=== PATIENT | male | born 1985 | race Caucasian/White ===

== ENCOUNTER 2021-10-17 16:26 | Emergency (ER) | payer MEDICARE, MEDICAID ==
[~2021-10-17] VITALS: Ht 177.8 cm; Wt 79.5 kg
[2021-10-17 16:30] VITALS: BP 134/78
[2021-10-17] MEDS ORDERED: OLAN2.5T29 PO (16:37)
[2021-10-17] MEDS ORDERED: LORA-999 PO (16:37)
[2021-10-17] MEDS ORDERED: OLANZapine 5 MG TABLET PO ONE (17:30)
[2021-10-17] MEDS ORDERED: LORazepam 1 MG TABLET PO ONE (17:30)
[2021-10-17] MEDS ORDERED: BENZTROPINE MESYLATE 2 MG TABLET PO ONE (17:30)
== END 2021-10-17 17:47 | disposition home or self-care (01) ==
LOC: EMS 16:29
DX: F25.9 Schizoaffective disorder, unspecified (principal); F41.9 Anxiety disorder, unspecified; Z76.0 Encounter for issue of repeat prescription
CPT/HCPCS: 99284; Z7502; Z7610

== ENCOUNTER 2021-11-16 11:44 | Inpatient (IN) | payer MEDICARE, MEDICAID ==
[~2021-11-16] VITALS: Ht 185.4 cm; Wt 74.0 kg
[~2021-11-16 11:44] MED LIST: LORA-999 PO; OLAN2.5T29 PO
[2021-11-16 14:11] LABS: BASOPHILS % (AUTO) 0.6 % (0.0-2.0); EOSINOPHILS % (AUTO) 1.2 % (1.0-6.0); HEMATOCRIT 33.2 % (41-53); HEMOGLOBIN 11.3 g/dL (13.5-17.5); LYMPHOCYTES # (AUTO) 1.3 K/uL (1.0-4.8); LYMPHOCYTES % (AUTO) 42.5 % (22.0-44.0); MEAN CORPUSCULAR HEMOGLOBIN 28.4 pg (26.0-34.0); MEAN CORPUSCULAR HGB CONC 34.1 G/dL (31.0-37.0); MEAN CORPUSCULAR VOLUME 83 fL (80-100); MONOCYTES # (AUTO) 0.3 K/uL (0.1-1.0); MONOCYTES % (AUTO) 10.1 % (2.0-9.0); NEUTROPHILS # (AUTO) 1.4 K/uL (1.8-7.7); NEUTROPHILS % (AUTO) 45.6 % (40.0-70.0); PLATELET COUNT (AUTO) 257 K/uL (150-450); RED BLOOD CELL COUNT(AUTO) 3.99 MIL/uL (4.50-5.90); RED CELL DISTRIBUTION WIDTH 14.6 % (11.5-14.5)
[2021-11-16 14:16] LABS: ANION GAP 9 mmol/L (8-16); CALCIUM, TOTAL 8.5 mg/dL (8.8-10.5); CARBON DIOXIDE 29 mmol/L (22-29); CHLORIDE 105 mmol/L (98-107); CREATININE 0.71 mg/dL (0.60-1.30); GLOMERULAR FILTR. RATE CALC > 60 mL/min (>60); GLUCOSE,RANDOM 91 mg/dL (70-110); SODIUM SERUM 143 mmol/L (136-145); UREA NITROGEN, BLOOD 14 mg/dL (7-18)
[2021-11-16 14:21] LABS: ALANINE AMINOTRANSFERASE 36 U/L (12-78); ALBUMIN 3.4 g/dL (3.4-5.0); ALKALINE PHOSPHATASE 99 U/L (46-116); ASPARTATE AMINOTRANSFERASE 26 U/L (15-37); BILIRUBIN,TOTAL 0.2 mg/dL (0.1-1.0); TOTAL PROTEIN, SERUM 6.8 g/dL (6.4-8.2)
[2021-11-16] MEDS ORDERED: LORazepam 1 MG TABLET PO ONE (15:30)
[2021-11-16] MEDS ORDERED: HALOPERIDOL 5 MG TABLET PO ONE (15:30)
[2021-11-16] MEDS ORDERED: ZOLPIDEM TARTRATE 10 MG TABLET PO PRN (16:00)
[2021-11-16] MEDS: LORazepam 2 MG TABLET PO PRN ×2 (16:27→16:36)
[2021-11-16 16:32] LABS: COVID AG,FIA SOURCE NASAL SWAB
[2021-11-16 17:46] LABS: APPEARANCE,URINE CLEAR (CLEAR); BILIRUBIN,URINE NEGATIVE (NEGATIVE); GLUCOSE, URINE (UA) NEGATIVE (NEGATIVE); KETONES,URINE NEGATIVE (NEGATIVE); LEUKOCYTE ESTERASE ,URINE NEGATIVE (NEGATIVE); NITRATE,URINE NEGATIVE (NEGATIVE); OCCULT BLOOD,URINE NEGATIVE (NEGATIVE); PROTEIN,URINE NEGATIVE (NEGATIVE); UROBILINOGEN,URINE 0.2 mg/dL (<=1.0)
[2021-11-16 17:52] LABS: AMPHET/METH SCREEN,URINE POSITIVE (NEGATIVE); BARBITURATE SCREEN, URINE NEGATIVE (NEGATIVE); BENZODIAZEPINES SCREEN,URINE NEGATIVE (NEGATIVE); CANNABINOID SCREEN,URINE NEGATIVE (NEGATIVE); COCAINE SCREEN,URINE NEGATIVE (NEGATIVE); METHADONE SCREEN, URINE NEGATIVE (NEGATIVE); OPIATE SCREEN,URINE NEGATIVE (NEGATIVE)
[2021-11-16 18:04] LABS: PHENCYCLIDINE SCREEN,URINE NEGATIVE (NEGATIVE)
[2021-11-16 19:08] VITALS: BP 108/62
[2021-11-16] MEDS ORDERED: PERMETHRIN 5% 60 GM CREAM TP ONE (19:45)
[2021-11-16] MEDS ORDERED: INFLUENZA VIRUS VACCINE QVS 2021-22 (6MO+)/PF 60 MCG/0.5 ML SYRINGE IM. ONE (20:00)
[2021-11-16] MEDS ORDERED: MAG HYDROX/AL HYDROX/SIMETH ES 30 ML SUSPENSION UDCUP PO PRN (21:30)
[2021-11-16] MEDS ORDERED: ACETAMINOPHEN 325 MG TABLET PO PRN (21:30)
[2021-11-16] MEDS ORDERED: PROMETHAZINE HCL 25 MG TABLET PO PRN (21:30)
[2021-11-16] MEDS ORDERED: GuaiFENesin/D-METHORPHAN [SUGAR-FREE] 200-20MG/10 ML SYRUP UDCUP PO PRN (21:30)
[2021-11-16] MEDS ORDERED: TUBERCULIN, PURIFIED PROTEIN DERIVATIVE 5 TU/0.1 ML SYRINGE ID ONE (21:30)
[2021-11-16] MEDS ORDERED: LOPERAMIDE HCL 2 MG CAPSULE PO PRN (21:30)
[2021-11-16] MEDS ORDERED: MAGNESIUM HYDROXIDE SUSPENSION 30 ML UDCUP PO PRN (21:30)
[2021-11-17 07:04] VITALS: BP 110/65
[2021-11-17 08:33] VITALS: BP 123/79
[2021-11-17] MEDS: MULTIVITAMINS WITH MINERALS, THERAPEUTIC TABLET PO SCH (08:56)
[2021-11-17] MEDS: FOLIC ACID 1 MG TABLET PO SCH (08:56)
[2021-11-17] MEDS: THIAMINE 100 MG TABLET PO SCH ×2 (08:56→22:41)
[2021-11-17] MEDS: OMEGA-3/DHA/EPA/FISH OIL 1,000 MG CAPSULE PO SCH (08:56)
[2021-11-17] MEDS: NALTREXONE HCL 50 MG TABLET PO SCH (08:56)
[2021-11-17] MEDS: FLUoxetine HCL 20 MG CAPSULE PO SCH (08:56)
[2021-11-17] MEDS: LORazepam 2 MG TABLET PO PRN ×2 (12:43→22:45)
[2021-11-17 15:25] LABS: GLUCOMETER DEV NAME(LOC) BV2X.2; GLUCOSE,POINT OF CARE 113 MG/DL (70-110)
[2021-11-17 16:27] VITALS: BP 135/83
[2021-11-17] MEDS ORDERED: OLANZapine 5 MG RAPDIS TABLET PO SCH (21:00)
[2021-11-17] MEDS: MELATONIN 5 MG TABLET PO SCH (22:41)
[2021-11-18 08:26] VITALS: BP 125/83
[2021-11-18] MEDS: FOLIC ACID 1 MG TABLET PO SCH (09:31)
[2021-11-18] MEDS: THIAMINE 100 MG TABLET PO SCH ×2 (09:31→17:00)
[2021-11-18] MEDS: NALTREXONE HCL 50 MG TABLET PO SCH (09:31)
[2021-11-18] MEDS: FLUoxetine HCL 20 MG CAPSULE PO SCH (09:31)
[2021-11-18] MEDS: OMEGA-3/DHA/EPA/FISH OIL 1,000 MG CAPSULE PO SCH (09:31)
[2021-11-18] MEDS: LORazepam 2 MG TABLET PO PRN ×2 (09:31→19:15)
[2021-11-18] MEDS: MULTIVITAMINS WITH MINERALS, THERAPEUTIC TABLET PO SCH (09:31)
[2021-11-18] MEDS ORDERED: PERMETHRIN 5% 60 GM CREAM TP ONE (12:42)
[2021-11-18 16:18] VITALS: BP 110/68
[2021-11-18] MEDS: ACAMPROSATE CALCIUM 333 MG DR TABLET PO SCH (17:13)
[2021-11-18] MEDS: BUPRENORPHINE HCL/NALOXONE HCL 8-2 MG SUBLINGUAL TABLET SL SCH (17:19)
[2021-11-18] MEDS: MELATONIN 5 MG TABLET PO SCH (20:10)
[2021-11-18] MEDS: OLANZapine 10 MG RAPDIS TABLET PO SCH (20:11)
[2021-11-19 00:46] VITALS: BP 134/91
[2021-11-19] MEDS: LORazepam 2 MG TABLET PO PRN ×4 (00:48→19:50)
[2021-11-19] MEDS: OLANZapine 5 MG RAPDIS TABLET PO PRN ×2 (00:48→19:50)
[2021-11-19 08:36] LABS: HEMOGLOBIN A1C 5.4 % (3.8-5.6)
[2021-11-19 09:01] LABS: CHOL/HDL RATIO 3.5 (4.2-7.3); FREE T4 (FREE THYROXINE) 1.04 ng/dL (0.76-1.46); THYROID STIMULATING HORMONE 1.25 uIU/mL (0.36-3.74)
[2021-11-19] MEDS: ACAMPROSATE CALCIUM 333 MG DR TABLET PO SCH ×3 (09:22→18:20)
[2021-11-19] MEDS: FOLIC ACID 1 MG TABLET PO SCH (09:22)
[2021-11-19] MEDS: FLUoxetine HCL 20 MG CAPSULE PO SCH (09:23)
[2021-11-19] MEDS: OMEGA-3/DHA/EPA/FISH OIL 1,000 MG CAPSULE PO SCH (09:23)
[2021-11-19] MEDS: THIAMINE 100 MG TABLET PO SCH ×2 (09:23→18:21)
[2021-11-19] MEDS: BUPRENORPHINE HCL/NALOXONE HCL 8-2 MG SUBLINGUAL TABLET SL SCH ×2 (09:23→18:21)
[2021-11-19] MEDS: MULTIVITAMINS WITH MINERALS, THERAPEUTIC TABLET PO SCH (09:23)
[2021-11-19 12:32] LABS: GLUCOMETER DEV NAME(LOC) POC.BV
[2021-11-19 14:02] VITALS: BP 110/80
[2021-11-19 16:14] VITALS: BP 129/90
[2021-11-19] MEDS ORDERED: PETROLATUM,WHITE 28 GM JELLY TP PRN (19:30)
[2021-11-19] MEDS: OLANZapine 10 MG RAPDIS TABLET PO SCH (21:05)
[2021-11-19] MEDS: MELATONIN 5 MG TABLET PO SCH (21:06)
[2021-11-19] MEDS: HydrOXYzine PAMOATE 50 MG CAPSULE PO PRN (21:58)
[2021-11-20 00:32] VITALS: BP 128/79
[2021-11-20] MEDS: LORazepam 2 MG TABLET PO PRN ×3 (01:24→12:29)
[2021-11-20] MEDS: HydrOXYzine PAMOATE 50 MG CAPSULE PO PRN ×2 (02:05→09:14)
[2021-11-20 06:00] VITALS: BP 131/77
[2021-11-20] MEDS: OLANZapine 5 MG RAPDIS TABLET PO PRN ×2 (08:00→12:29)
[2021-11-20 08:23] VITALS: BP 101/61
[2021-11-20] MEDS ORDERED: FLUoxetine HCL 20 MG CAPSULE PO SCH (09:00)
[2021-11-20] MEDS: MULTIVITAMINS WITH MINERALS, THERAPEUTIC TABLET PO SCH (09:13)
[2021-11-20] MEDS: FOLIC ACID 1 MG TABLET PO SCH (09:13)
[2021-11-20] MEDS: THIAMINE 100 MG TABLET PO SCH (09:13)
[2021-11-20] MEDS: OMEGA-3/DHA/EPA/FISH OIL 1,000 MG CAPSULE PO SCH (09:13)
[2021-11-20] MEDS: ACAMPROSATE CALCIUM 333 MG DR TABLET PO SCH ×2 (09:13→12:29)
[2021-11-20] MEDS: BUPRENORPHINE HCL/NALOXONE HCL 8-2 MG SUBLINGUAL TABLET SL SCH (09:14)
[2021-11-20] MEDS ORDERED: OMEG-135 PO ×2 (09:35→10:08)
[2021-11-20] MEDS ORDERED: BUPR1TAB32 SL ×2 (09:35→10:06)
[2021-11-20] MEDS ORDERED: MELA5TAB40 PO ×2 (09:35→10:07)
[2021-11-20] MEDS ORDERED: OLAN10TA26 PO ×2 (09:35→10:07)
[2021-11-20] MEDS ORDERED: ACAM333T7 PO ×2 (09:35→10:01)
[2021-11-20 10:14] VITALS: BP 108/69
[2021-11-20 12:50] VITALS: BP 121/70
[2021-11-20] MEDS ORDERED: FLUO20CA36 PO (15:53)
== END 2021-11-20 13:10 | disposition home or self-care (01) | DRG 885 ==
LOC: EMS 11:58 → B2X 16:52
PROVIDERS: ADMIT Psychiatry & Neurology Psychiatry; ATTEND Psychiatry & Neurology Psychiatry
DX: F25.9 Schizoaffective disorder, unspecified (principal); R45.851 Suicidal ideations; K50.90 Crohn's disease, unspecified, without complications; F17.210 Nicotine dependence, cigarettes, uncomplicated; D64.9 Anemia, unspecified; F15.90 Other stimulant use, unspecified, uncomplicated; D72.819 Decreased white blood cell count, unspecified; J44.9 Chronic obstructive pulmonary disease, unspecified; F31.9 Bipolar disorder, unspecified; Z20.822 Contact with and (suspected) exposure to COVID-19; Z59.00 Homelessness unspecified
CPT/HCPCS: 80053; 80061; 81003; 82962; 83036; 84439; 84443; 85025; 86592; 99285; G0480; Q9967

== ENCOUNTER 2021-11-17 16:05 | Emergency (ER) | payer MEDICARE, MEDICAID ==
[~2021-11-17] VITALS: Ht 185.4 cm; Wt 75.0 kg
[2021-11-17] MEDS ORDERED: DICYCLOMINE HCL 20 MG TABLET PO ONE (16:45)
[2021-11-17 17:02] LABS: BASOPHILS % (AUTO) 0.1 % (0.0-2.0); EOSINOPHILS % (AUTO) 0 % (1.0-6.0); HEMATOCRIT 37.7 % (41-53); HEMOGLOBIN 12.8 g/dL (13.5-17.5); LYMPHOCYTES # (AUTO) 0.5 K/uL (1.0-4.8); LYMPHOCYTES % (AUTO) 9.6 % (22.0-44.0); MEAN CORPUSCULAR HGB CONC 33.9 G/dL (31.0-37.0); MEAN CORPUSCULAR VOLUME 83 fL (80-100); MONOCYTES # (AUTO) 0.2 K/uL (0.1-1.0); NEUTROPHILS # (AUTO) 4.9 K/uL (1.8-7.7); PLATELET COUNT (AUTO) 274 K/uL (150-450); RED BLOOD CELL COUNT(AUTO) 4.56 MIL/uL (4.50-5.90); RED CELL DISTRIBUTION WIDTH 14.3 % (11.5-14.5)
[2021-11-17 17:03] LABS: NEUTROPHILS % (AUTO) 87.3 % (40.0-70.0)
[2021-11-17 17:10] LABS: ANION GAP 11 mmol/L (8-16); CALCIUM, TOTAL 9.4 mg/dL (8.8-10.5); CARBON DIOXIDE 26 mmol/L (22-29); CHLORIDE 104 mmol/L (98-107); CREATININE 0.63 mg/dL (0.60-1.30); GLOMERULAR FILTR. RATE CALC > 60 mL/min (>60); GLUCOSE,RANDOM 120 mg/dL (70-110); POTASSIUM 3.6 mmol/L (3.5-5.1); SODIUM SERUM 141 mmol/L (136-145); UREA NITROGEN, BLOOD 11 mg/dL (7-18)
[2021-11-17 17:15] LABS: ALANINE AMINOTRANSFERASE 44 U/L (12-78); ALBUMIN 3.8 g/dL (3.4-5.0); ALKALINE PHOSPHATASE 112 U/L (46-116); ASPARTATE AMINOTRANSFERASE 26 U/L (15-37); BILIRUBIN,TOTAL 0.2 mg/dL (0.1-1.0); LIPASE 92 U/L (73-393); TOTAL PROTEIN, SERUM 7.7 g/dL (6.4-8.2)
[2021-11-17 20:09] VITALS: BP 128/92
[2021-11-17] MEDS ORDERED: PB/HYOSCY/ATR/SCOP/LIDO/MAALOX 55 ML BOTTLE PO ONE (21:30)
[2021-11-17 21:59] LABS: COVID AG,FIA SOURCE NASAL SWAB
== END 2021-11-17 22:24 | disposition home or self-care (01) ==
LOC: EMS 16:11
DX: R10.9 Unspecified abdominal pain (principal); R06.00 Dyspnea, unspecified; F20.9 Schizophrenia, unspecified; F15.90 Other stimulant use, unspecified, uncomplicated; Z20.822 Contact with and (suspected) exposure to COVID-19
CPT/HCPCS: 71045; 80053; 83690; 85025; 99284; 36415-L1; 36415-TC

== ENCOUNTER 2021-11-21 22:33 | Emergency (ER) | payer MEDICARE, MEDICAID ==
[~2021-11-21] VITALS: Ht 185.4 cm; Wt 75.0 kg
[~2021-11-21 22:33] MED LIST changes: +ACAM333T7 PO; +BUPR1TAB32 SL; +FLUO20CA36 PO; -LORA-999 PO; +MELA5TAB40 PO; +OLAN10TA26 PO; -OLAN2.5T29 PO; +OMEG-135 PO
[2021-11-21 23:19] VITALS: BP 121/80
[2021-11-22] MEDS ORDERED: LORazepam 1 MG TABLET PO ONE (01:45)
[2021-11-22] MEDS ORDERED: HALOPERIDOL 5 MG TABLET PO ONE (01:45)
== END 2021-11-22 02:36 | disposition home or self-care (01) ==
LOC: EMS 22:35
DX: F41.9 Anxiety disorder, unspecified (principal); F15.90 Other stimulant use, unspecified, uncomplicated; F20.9 Schizophrenia, unspecified; F11.90 Opioid use, unspecified, uncomplicated; Z79.899 Other long term (current) drug therapy
CPT/HCPCS: 93005; 99283

== ENCOUNTER 2022-02-04 18:35 | Emergency (ER) | payer MEDICARE, MEDICAID ==
[~2022-02-04] VITALS: Ht 185.4 cm; Wt 75.0 kg
[~2022-02-04 18:35] MED LIST changes: +OMEG-108 PO; -OMEG-135 PO
[2022-02-04] MEDS ORDERED: HALOPERIDOL 5 MG TABLET PO ONE (20:30)
[2022-02-04] MEDS ORDERED: LORazepam 1 MG TABLET PO ONE (20:45)
[2022-02-04 21:02] LABS: ANION GAP 4 mmol/L (8-16); CALCIUM, TOTAL 8.9 mg/dL (8.8-10.5); CARBON DIOXIDE 30 mmol/L (22-29); CHLORIDE 104 mmol/L (98-107); CREATININE 0.66 mg/dL (0.60-1.30); GLOMERULAR FILTR. RATE CALC > 60 mL/min (>60); GLUCOSE,RANDOM 82 mg/dL (70-110); POTASSIUM 4.2 mmol/L (3.5-5.1); SODIUM SERUM 138 mmol/L (136-145); UREA NITROGEN, BLOOD 8 mg/dL (7-18)
[2022-02-04 21:08] LABS: ALANINE AMINOTRANSFERASE 168 U/L (12-78); ALBUMIN 3.4 g/dL (3.4-5.0); ALKALINE PHOSPHATASE 91 U/L (46-116); ASPARTATE AMINOTRANSFERASE 48 U/L (15-37); BILIRUBIN,TOTAL 0.3 mg/dL (0.1-1.0); TOTAL PROTEIN, SERUM 7.3 g/dL (6.4-8.2)
[2022-02-04 21:34] VITALS: BP 115/76
== END 2022-02-04 22:24 | disposition home or self-care (01) ==
LOC: EMS 18:40
DX: F20.9 Schizophrenia, unspecified (principal); F11.90 Opioid use, unspecified, uncomplicated; F15.90 Other stimulant use, unspecified, uncomplicated; F17.210 Nicotine dependence, cigarettes, uncomplicated; Z79.899 Other long term (current) drug therapy
CPT/HCPCS: 36415; 80053; 99284; G0480

== ENCOUNTER 2022-07-16 16:04 | Inpatient (IN) | payer MEDICARE, MEDICAID ==
[~2022-07-16] VITALS: Ht 185.4 cm; Wt 79.8 kg
[~2022-07-16 16:04] MED LIST changes: -OMEG-108 PO; +OMEG-135 PO
[2022-07-16 17:04] LABS: BASOPHILS % (AUTO) 0.3 % (0.0-2.0); EOSINOPHILS % (AUTO) 0.2 % (1.0-6.0); HEMATOCRIT 37.1 % (41-53); HEMOGLOBIN 12.5 g/dL (13.5-17.5); LYMPHOCYTES # (AUTO) 1.3 K/uL (1.0-4.8); LYMPHOCYTES % (AUTO) 21.8 % (22.0-44.0); MEAN CORPUSCULAR HEMOGLOBIN 29.8 pg (26.0-34.0); MEAN CORPUSCULAR HGB CONC 33.6 G/dL (31.0-37.0); MEAN CORPUSCULAR VOLUME 89 fL (80-100); MONOCYTES # (AUTO) 0.4 K/uL (0.1-1.0); MONOCYTES % (AUTO) 6.9 % (2.0-9.0); NEUTROPHILS # (AUTO) 4.1 K/uL (1.8-7.7); NEUTROPHILS % (AUTO) 70.8 % (40.0-70.0); PLATELET COUNT (AUTO) 189 K/uL (150-450); RED BLOOD CELL COUNT(AUTO) 4.19 MIL/uL (4.50-5.90); RED CELL DISTRIBUTION WIDTH 15.2 % (11.5-14.5)
[2022-07-16 17:07] LABS: COVID AG,FIA SOURCE NASAL SWAB
[2022-07-16 17:16] LABS: ANION GAP 8 mmol/L (8-16); CARBON DIOXIDE 29 mmol/L (22-29); CHLORIDE 103 mmol/L (98-107); CREATININE 0.72 mg/dL (0.60-1.30); GLUCOSE,RANDOM 93 mg/dL (70-110); POTASSIUM 4.2 mmol/L (3.5-5.1); SODIUM SERUM 140 mmol/L (136-145); UREA NITROGEN, BLOOD 10 mg/dL (7-18)
[2022-07-16 17:17] LABS: GLOMERULAR FILTR. RATE CALC > 60 mL/min (>60)
[2022-07-16 17:20] LABS: ALANINE AMINOTRANSFERASE 21 U/L (12-78); ALBUMIN 3.7 g/dL (3.4-5.0); ALKALINE PHOSPHATASE 66 U/L (46-116); ASPARTATE AMINOTRANSFERASE 18 U/L (15-37); BILIRUBIN,TOTAL 0.3 mg/dL (0.1-1.0); TOTAL PROTEIN, SERUM 7.2 g/dL (6.4-8.2)
[2022-07-16 17:22] LABS: ACETAMINOPHEN < 2 mcg/mL (10-30)
[2022-07-16] MEDS ORDERED: ZOLPIDEM TARTRATE 10 MG TABLET PO PRN (18:00)
[2022-07-16] MEDS ORDERED: HALOPERIDOL 5 MG TABLET PO PRN (18:00)
[2022-07-17 02:27] VITALS: BP 97/66
[2022-07-17 08:37] VITALS: BP 108/74
[2022-07-17] MEDS: LORazepam 2 MG TABLET PO PRN (10:08)
[2022-07-17] MEDS: FLUoxetine HCL 20 MG CAPSULE PO SCH (10:40)
[2022-07-17] MEDS: VALPROIC ACID 250 MG CAPSULE PO SCH ×2 (10:40→20:11)
[2022-07-17] MEDS: OLANZapine 10 MG RAPDIS TABLET PO SCH (20:11)
[2022-07-17 20:16] VITALS: BP 119/65
[2022-07-18 08:47] VITALS: BP 127/65
[2022-07-18 09:35] LABS: APPEARANCE,URINE HAZY (CLEAR); BILIRUBIN,URINE NEGATIVE (NEGATIVE); GLUCOSE, URINE (UA) NEGATIVE (NEGATIVE); KETONES,URINE TRACE mg/dL (NEGATIVE); LEUKOCYTE ESTERASE ,URINE NEGATIVE (NEGATIVE); NITRATE,URINE NEGATIVE (NEGATIVE); OCCULT BLOOD,URINE NEGATIVE (NEGATIVE); PROTEIN,URINE 30-70 mg/dL (NEGATIVE); SPECIFIC GRAVITIY, URINE 1.029 (1.003-1.030)
[2022-07-18] MEDS: VALPROIC ACID 250 MG CAPSULE PO SCH ×2 (09:36→20:07)
[2022-07-18] MEDS: FLUoxetine HCL 20 MG CAPSULE PO SCH (09:36)
[2022-07-18 09:46] LABS: BACTERIA,URINE None Seen /HPF (None Seen); RBC,URINE None Seen /HPF (0-2); SQUAMOUS EPITHELIAL CELL,UR Few /LPF (None Seen); WBC,URINE 0-2 /HPF (0-5)
[2022-07-18 09:47] LABS: AMPHET/METH SCREEN,URINE POSITIVE (NEGATIVE); BARBITURATE SCREEN, URINE NEGATIVE (NEGATIVE); BENZODIAZEPINES SCREEN,URINE POSITIVE (NEGATIVE); CANNABINOID SCREEN,URINE NEGATIVE (NEGATIVE); COCAINE SCREEN,URINE NEGATIVE (NEGATIVE)
[2022-07-18 09:55] LABS: OPIATE SCREEN,URINE NEGATIVE (NEGATIVE)
[2022-07-18 10:08] LABS: METHADONE SCREEN, URINE NEGATIVE (NEGATIVE); PHENCYCLIDINE SCREEN,URINE NEGATIVE (NEGATIVE)
[2022-07-18] MEDS: LORazepam 2 MG TABLET PO PRN ×3 (12:31→23:28)
[2022-07-18 20:04] VITALS: BP 119/77
[2022-07-18] MEDS: OLANZapine 10 MG RAPDIS TABLET PO SCH (20:07)
[2022-07-19] MEDS: FLUoxetine HCL 20 MG CAPSULE PO SCH (09:17)
[2022-07-19] MEDS: VALPROIC ACID 250 MG CAPSULE PO SCH ×2 (09:17→20:14)
[2022-07-19 09:41] VITALS: BP 112/67
[2022-07-19] MEDS: LORazepam 2 MG TABLET PO PRN ×2 (11:18→19:51)
[2022-07-19] MEDS: NICOTINE POLACRILEX 2 MG LOZENGE PO PRN (20:14)
[2022-07-19] MEDS: OLANZapine 10 MG RAPDIS TABLET PO SCH (20:14)
[2022-07-19 20:21] VITALS: BP 115/68
[2022-07-19] MEDS ORDERED: CALAMINE/ZINC OXIDE 177 ML LOTION TP PRN (21:30)
[2022-07-20 08:35] VITALS: BP 112/69
[2022-07-20] MEDS: FLUoxetine HCL 20 MG CAPSULE PO SCH (09:39)
[2022-07-20] MEDS: VALPROIC ACID 250 MG CAPSULE PO SCH ×2 (09:39→20:29)
[2022-07-20] MEDS: LORazepam 2 MG TABLET PO PRN ×2 (11:29→19:04)
[2022-07-20] MEDS: NICOTINE POLACRILEX 2 MG LOZENGE PO PRN (16:35)
[2022-07-20 20:17] VITALS: BP 126/65
[2022-07-20] MEDS: OLANZapine 10 MG RAPDIS TABLET PO SCH (20:29)
[2022-07-21 08:26] VITALS: BP 130/82
[2022-07-21] MEDS: FLUoxetine HCL 20 MG CAPSULE PO SCH (08:56)
[2022-07-21] MEDS: VALPROIC ACID 250 MG CAPSULE PO SCH (08:56)
[2022-07-21] MEDS: LORazepam 2 MG TABLET PO PRN (12:00)
[2022-07-21 14:11] LABS: GLUCOMETER DEV NAME(LOC) POC.BV
[2022-07-21] MEDS ORDERED: PROZ20 PO (14:29)
[2022-07-21] MEDS ORDERED: VALP250C48 PO (14:29)
[2022-07-21] MEDS ORDERED: OLAN10TA26 PO (14:29)
== END 2022-07-21 15:33 | disposition home or self-care (01) | DRG 885 ==
LOC: EMS 16:12 → B2S 18:35
PROVIDERS: ADMIT Psychiatry & Neurology Psychiatry; ATTEND Psychiatry & Neurology Psychiatry
DX: F25.1 Schizoaffective disorder, depressive type (principal); F11.20 Opioid dependence, uncomplicated; K50.90 Crohn's disease, unspecified, without complications; R45.851 Suicidal ideations; Z20.822 Contact with and (suspected) exposure to COVID-19; D64.9 Anemia, unspecified; F17.210 Nicotine dependence, cigarettes, uncomplicated; R00.0 Tachycardia, unspecified; E78.5 Hyperlipidemia, unspecified; F10.10 Alcohol abuse, uncomplicated; F15.10 Other stimulant abuse, uncomplicated; Z59.00 Homelessness unspecified; Z79.899 Other long term (current) drug therapy; Z91.51 Personal history of suicidal behavior; Z71.41 Alcohol abuse counseling and surveillance of alcoholic; Z71.51 Drug abuse counseling and surveillance of drug abuser
CPT/HCPCS: 80053; 80307; 81001; 85025; 93005; 99285; G0480; G0481; Q9967

== ENCOUNTER 2023-02-06 13:37 | Emergency (ER) | payer MEDICARE, MEDICAID ==
[~2023-02-06] VITALS: Ht 182.9 cm; Wt 84.1 kg
[~2023-02-06 13:37] MED LIST changes: -ACAM333T7 PO; -BUPR1TAB32 SL; -FLUO20CA36 PO; -MELA5TAB40 PO; -OMEG-135 PO; +PROZ20 PO; +VALP250C48 PO
[2023-02-06] MEDS ORDERED: DIVA-85 PO (14:43)
[2023-02-06] MEDS ORDERED: HYDR50CA6 PO (15:24)
[2023-02-06] MEDS ORDERED: DIVA-112 PO (15:24)
[2023-02-06] MEDS ORDERED: HALO5TAB2 PO (15:24)
[2023-02-06] MEDS ORDERED: BENZ2TAB76 PO (15:24)
[2023-02-06] MEDS ORDERED: OLAN20TA35 PO (15:24)
[2023-02-06] MEDS ORDERED: TRAZ-252 PO (15:24)
[2023-02-06] MEDS ORDERED: GABA800T9 PO (15:24)
[2023-02-06] MEDS ORDERED: SODIUM CHLORIDE 0.9% 1,000 ML IV ONE (15:30)
[2023-02-06] MEDS ORDERED: METOCLOPRAMIDE HCL 5 MG/ML 2 ML VIAL IVP ONE (15:30)
[2023-02-06 16:36] LABS: BASOPHILS % (AUTO) 0.4 % (0.0-2.0); EOSINOPHILS % (AUTO) 0.2 % (1.0-6.0); HEMATOCRIT 42.1 % (41-53); HEMOGLOBIN 14.4 g/dL (13.5-17.5); LYMPHOCYTES # (AUTO) 1.1 K/uL (1.0-4.8); MEAN CORPUSCULAR HEMOGLOBIN 30.4 pg (26.0-34.0); MEAN CORPUSCULAR HGB CONC 34.3 G/dL (31.0-37.0); MEAN CORPUSCULAR VOLUME 89 fL (80-100); MONOCYTES # (AUTO) 0.2 K/uL (0.1-1.0); MONOCYTES % (AUTO) 2.6 % (2.0-9.0); NEUTROPHILS # (AUTO) 6.6 K/uL (1.8-7.7); NEUTROPHILS % (AUTO) 82.8 % (40.0-70.0); PLATELET COUNT (AUTO) 226 K/uL (150-450); RED BLOOD CELL COUNT(AUTO) 4.75 MIL/uL (4.50-5.90); RED CELL DISTRIBUTION WIDTH 12.6 % (11.5-14.5)
[2023-02-06 16:43] LABS: ANION GAP 9 mmol/L (8-16); CALCIUM, TOTAL 9.7 mg/dL (8.8-10.5); CARBON DIOXIDE 30 mmol/L (22-29); CHLORIDE 101 mmol/L (98-107); CREATININE 0.89 mg/dL (0.60-1.30); GLOMERULAR FILTR. RATE CALC > 60 mL/min (>60); GLUCOSE,RANDOM 92 mg/dL (70-110); SODIUM SERUM 140 mmol/L (136-145); UREA NITROGEN, BLOOD 14 mg/dL (7-18)
[2023-02-06 16:49] LABS: ALANINE AMINOTRANSFERASE 14 U/L (12-78); ALBUMIN 3.9 g/dL (3.4-5.0); ALKALINE PHOSPHATASE 88 U/L (46-116); ASPARTATE AMINOTRANSFERASE 23 U/L (15-37); BILIRUBIN,TOTAL 0.3 mg/dL (0.1-1.0); LIPASE 48 U/L (73-393); TOTAL PROTEIN, SERUM 8.7 g/dL (6.4-8.2)
[2023-02-06] MEDS ORDERED: CefTRIAXone 1 GM/DEXTROSE 50 ML IV ONE (20:00)
[2023-02-06 20:18] LABS: AMPHET/METH SCREEN,URINE POSITIVE (NEGATIVE); BARBITURATE SCREEN, URINE NEGATIVE (NEGATIVE); BENZODIAZEPINES SCREEN,URINE NEGATIVE (NEGATIVE); CANNABINOID SCREEN,URINE NEGATIVE (NEGATIVE); COCAINE SCREEN,URINE NEGATIVE (NEGATIVE); METHADONE SCREEN, URINE NEGATIVE (NEGATIVE); OPIATE SCREEN,URINE NEGATIVE (NEGATIVE); PHENCYCLIDINE SCREEN,URINE NEGATIVE (NEGATIVE)
[2023-02-06] MEDS ORDERED: OLANZapine 5 MG TABLET PO ONE (20:30)
[2023-02-06] MEDS ORDERED: LORazepam 2 MG TABLET PO ONE (21:30)
[2023-02-06 21:50] VITALS: BP 109/73
[2023-02-06] MEDS ORDERED: AZIT250T9 PO (22:56)
[2023-02-06] MEDS ORDERED: OLAN10TA74 PO (22:56)
== END 2023-02-06 23:07 | disposition home or self-care (01) ==
LOC: EMS 13:39
DX: R11.2 Nausea with vomiting, unspecified (principal); F20.9 Schizophrenia, unspecified; F17.210 Nicotine dependence, cigarettes, uncomplicated; F15.90 Other stimulant use, unspecified, uncomplicated
CPT/HCPCS: 99285; 96365; 96361; 96375; 80053; 83690; 85025; 36415; 74022; 93005; 80307 ×2; G0480; J0696; J2765; J7030

== ENCOUNTER 2023-05-13 01:09 | Emergency (ER) | payer MEDICARE, MEDICAID ==
[~2023-05-13] VITALS: Ht 182.9 cm; Wt 68.2 kg
[~2023-05-13 01:09] MED LIST changes: +BENZ2TAB71 PO; +DIVA-112 PO; +GABA800T9 PO; +HALO5TAB2 PO; +HYDR50CA6 PO; -OLAN10TA26 PO; +OLAN10TA74 PO; +OLAN20TA35 PO; -PROZ20 PO; +TRAZ-252 PO; -VALP250C48 PO
[2023-05-13 02:09] VITALS: BP 122/69; PULSE 80; RESP 18; TEMP 98
[2023-05-13] MEDS ORDERED: IBUPROFEN 600 MG TABLET PO ONE (02:30)
[2023-05-13] MEDS ORDERED: HydrOXYzine PAMOATE 50 MG CAPSULE PO ONE (02:30)
[2023-05-13] MEDS ORDERED: IBUP-1492 PO (04:27)
== END 2023-05-13 05:50 | disposition home or self-care (01) ==
LOC: EMS 01:09
DX: S00.33XA Contusion of nose, initial encounter (principal); F20.9 Schizophrenia, unspecified; F17.210 Nicotine dependence, cigarettes, uncomplicated; F15.90 Other stimulant use, unspecified, uncomplicated; F19.90 Other psychoactive substance use, unspecified, uncomplicated; Y04.8XXA Assault by other bodily force, initial encounter; Y93.89 Activity, other specified; Y92.89 Other specified places as the place of occurrence of the external cause; Y99.8 Other external cause status
CPT/HCPCS: 70160; 99283

== ENCOUNTER 2023-06-26 22:32 | Emergency (ER) | payer MEDICARE, MEDICAID ==
[~2023-06-26] VITALS: Ht 182.9 cm; Wt 77.3 kg
[~2023-06-26 22:32] MED LIST changes: +IBUP-1492 PO
[2023-06-26 22:44] VITALS: TEMP 98.1
[2023-06-26 23:49] LABS: BASOPHILS % (AUTO) 0.3 % (0.0-2.0); EOSINOPHILS % (AUTO) 0.7 % (1.0-6.0); HEMATOCRIT 33.3 % (41-53); HEMOGLOBIN 11.1 g/dL (13.5-17.5); LYMPHOCYTES % (AUTO) 17.3 % (22.0-44.0); MEAN CORPUSCULAR HEMOGLOBIN 30.2 pg (26.0-34.0); MEAN CORPUSCULAR HGB CONC 33.2 G/dL (31.0-37.0); MEAN CORPUSCULAR VOLUME 91 fL (80-100); MONOCYTES # (AUTO) 0.3 K/uL (0.1-1.0); MONOCYTES % (AUTO) 4.7 % (2.0-9.0); NEUTROPHILS # (AUTO) 4.3 K/uL (1.8-7.7); PLATELET COUNT (AUTO) 300 K/uL (150-450); RED BLOOD CELL COUNT(AUTO) 3.67 MIL/uL (4.50-5.90)
[2023-06-26 23:59] LABS: ANION GAP 7 mmol/L (8-16); CALCIUM, TOTAL 9.1 mg/dL (8.8-10.5); CARBON DIOXIDE 30 mmol/L (22-29); CHLORIDE 100 mmol/L (98-107); CREATININE 0.69 mg/dL (0.60-1.30); GLOMERULAR FILTR. RATE CALC > 60 mL/min (>60); GLUCOSE,RANDOM 101 mg/dL (70-110); POTASSIUM 4.2 mmol/L (3.5-5.1); SODIUM SERUM 137 mmol/L (136-145)
[2023-06-27 00:06] LABS: ALANINE AMINOTRANSFERASE 18 U/L (12-78); ALBUMIN 3.2 g/dL (3.4-5.0); ALKALINE PHOSPHATASE 66 U/L (46-116); ASPARTATE AMINOTRANSFERASE 26 U/L (15-37); BILIRUBIN,TOTAL 0.3 mg/dL (0.1-1.0); TOTAL PROTEIN, SERUM 6.9 g/dL (6.4-8.2)
[2023-06-27] MEDS ORDERED: LORazepam 2 MG TABLET PO ONE (01:15)
[2023-06-27] MEDS ORDERED: DiphenhydrAMINE HCL 25 MG CAPSULE PO ONE (01:15)
[2023-06-27] MEDS ORDERED: OLANZapine 5 MG TABLET PO ONE (01:15)
[2023-06-27 02:11] LABS: AMPHET/METH SCREEN,URINE NEGATIVE (NEGATIVE); BARBITURATE SCREEN, URINE NEGATIVE (NEGATIVE); BENZODIAZEPINES SCREEN,URINE POSITIVE (NEGATIVE); CANNABINOID SCREEN,URINE NEGATIVE (NEGATIVE); COCAINE SCREEN,URINE NEGATIVE (NEGATIVE); METHADONE SCREEN, URINE NEGATIVE (NEGATIVE); OPIATE SCREEN,URINE NEGATIVE (NEGATIVE); PHENCYCLIDINE SCREEN,URINE NEGATIVE (NEGATIVE)
[2023-06-27 07:06] VITALS: BP 122/66; PULSE 74; RESP 16
== END 2023-06-27 07:52 | disposition home or self-care (01) ==
LOC: EMS 22:33
DX: F15.10 Other stimulant abuse, uncomplicated (principal); F25.1 Schizoaffective disorder, depressive type; F41.9 Anxiety disorder, unspecified; E78.00 Pure hypercholesterolemia, unspecified; F17.210 Nicotine dependence, cigarettes, uncomplicated; F12.90 Cannabis use, unspecified, uncomplicated
CPT/HCPCS: 99284; 80053; 84484; 85025; 36415; 93005; 80307; G0480